=== PATIENT | female | born 1970 | race Two or more races ===

== ENCOUNTER → 2016-07-12 | Outpatient (CLI) | payer OTHER | LOC: CFH 11:50 → MERGE 11:50 | PROVIDERS: ATTEND Family Medicine | DX: Z02.9 Encounter for administrative examinations, unspecified (principal) ==

== ENCOUNTER → 2018-09-30 | Outpatient (CLI) | payer OTHER | END | disposition home or self-care (01) | LOC: CFH 13:42 | PROVIDERS: ATTEND Family Medicine | DX: N63.12 Unspecified lump in the right breast, upper inner quadrant (principal); N63.21 Unspecified lump in the left breast, upper outer quadrant | CPT/HCPCS: 76642; 77066; G0279 ==